=== PATIENT | female | born 2000 | race Caucasian/White ===

== ENCOUNTER 2020-01-07 17:14 | Emergency (ER) | payer MEDICAID ==
[~2020-01-07] VITALS: Ht 167.6 cm; Wt 68.0 kg
[2020-01-07 17:17] VITALS: BP 130/87
== END 2020-01-07 17:46 | disposition left against medical advice (07) ==
LOC: ER 17:14
DX: G40.909 Epilepsy, unspecified, not intractable, without status epilepticus (principal)
CPT/HCPCS: 99283